=== PATIENT | male | born 1995 | race Two or more races ===

== ENCOUNTER 2023-10-01 09:31 | Emergency (ER) | payer OTHER ==
[2023-10-01 09:49] VITALS: BP 125/74; PULSE 76; RESP 18; TEMP 98.2; BMI 23.7
[2023-10-01] MEDS ORDERED: IBUPROFEN 600 MG TABLET (FP) PO ONE (10:02)
[2023-10-01] MEDS ORDERED: DEXAMETHASONE SOD PHOSPHATE 10 MG/1 ML VIAL ONE (10:03)
[2023-10-01] MEDS: DEXAMETHASONE SOD PHOSPHATE 10 MG/1 ML VIAL IVPUSH ONE (10:06)
[2023-10-01] MEDS: IBUPROFEN 600 MG TABLET (FP) PO ONE (10:06)
[2023-10-01 13:47] LABS: THROAT:GRP A STREP NOT DETECTED (NOTDETECTED)
== END 2023-10-01 10:21 | disposition home or self-care (01) ==
LOC: FER 09:31
PROC: 3E030GC Introduction of Other Therapeutic Substance into Peripheral Vein, Open Approach (ICD-10-PCS; principal; 2023-10-01)
DX: R13.10 Dysphagia, unspecified (principal); J02.9 Acute pharyngitis, unspecified; Z20.822 Contact with and (suspected) exposure to COVID-19
CPT/HCPCS: 0241U-QW; 87651; 99284-25; J1100